=== PATIENT | female | born 1960 | race Caucasian/White ===

== ENCOUNTER → 2024-10-29 10:09 | Outpatient (REF) | payer MEDICARE, BC, SELFPAY | LOC: HWRAD 10:09 | PROVIDERS: ATTENDING PHYSICIAN Orthopaedic Surgery; FAMILY PHYSICIAN Nurse Practitioner Family | DX: M20.12 Hallux valgus (acquired), left foot (principal); M19.072 Primary osteoarthritis, left ankle and foot | CPT/HCPCS: 73700 ==

== ENCOUNTER → 2025-06-17 10:14 | Outpatient (REF) | payer MEDICARE, BC, SELFPAY | LOC: HWWDC 10:14 | PROVIDERS: ATTENDING PHYSICIAN Nurse Practitioner Family | DX: Z12.31 Encounter for screening mammogram for malignant neoplasm of breast (principal) | CPT/HCPCS: 77063; 77067 ==